=== PATIENT | female | born 1950 | race Caucasian/White ===

== ENCOUNTER → 2023-12-08 | Outpatient (CLI) | payer MEDICARE ==
--- NOTE | 2023-12-08 17:09 | MR ---
EXAMINATION TYPE: MR knee RT wo con DATE OF EXAM: 12/08/2023 COMPARISON: Outside radiographs 11/30/2023 HISTORY: 73-year-old female M25.561, Right knee pain. TECHNIQUE: Multiplanar, multisequence imaging of the right knee is performed without IV contrast. FINDINGS: The ACL, PCL and LCL complex are intact. There is edema on either side of the intact MCL. The medial meniscus is diffusely degenerative, torn, and extruded. There is severe, full-thickness cartilage loss along the peripheral aspect of the medial compartment. Severe marrow edema along the peripheral articular surface of the medial tibial plateau, possibly se condary to a subtle 7 mm insufficiency fracture of the mid peripheral aspect of the medial tibial arlen teau. There is focal irregularity of the subchondral bone here. The lateral meniscus appears intact. There is moderate diffuse irregular cartilage thinning throughou t the lateral compartment. Moderate irregular cartilage thinning throughout the patellofemoral compartment. Extensor mechanism is intact. Mild anterior soft tissue swelling. Trace knee joint effusion probably physiologic. No sizable Golden's cyst. Normal popliteal artery anatomy with mild generalized muscle atrophy. No suspicious bone marrow repla cement otherwise seen. IMPRESSION: 1. Intense marrow edema along the periphery of the medial tibial plateau. There is severe medial comp artmental osteoarthrosis with full-thickness cartilage loss here. The edema could be reactive to harleen re arthritis or could represent a subtle 7 mm insufficiency fracture. 2. Diffusely degenerative, torn, and extruded medial meniscus. 3. Grade 1 MCL sprain. 4. 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
== END | disposition home or self-care (01) ==
LOC: RADMRIMAIN 13:07
PROVIDERS: ATTEND Orthopaedic Surgery
DX: M17.11 Unilateral primary osteoarthritis, right knee (principal); M23.331 Other meniscus derangements, other medial meniscus, right knee; M89.8X6 Other specified disorders of bone, lower leg; M23.631 Other spontaneous disruption of medial collateral ligament of right knee